=== PATIENT | female | born 1960 | race Caucasian/White ===

== ENCOUNTER 2021-04-08 10:24 | Observation (INO) | payer BC ==
[2021-04-03 12:21] LABS: Absolute Lymphocytes (CBC) 3.4 K/uL (0.7-4.9); Hematocrit 44.8 % (36.0-45.0); Lymphocytes % 36.9 % (15.3-44.8); MPV 7.9 fL (7.6-11.3); RBC Red Blood Cell Count 4.81 M/uL (3.86-4.86)
[2021-04-03 12:34] LABS: Urine Appearance CLEAR (Clear); Urine Bilirubin NEGATIVE (Negative); Urine Blood NEGATIVE (Negative); Urine Color YELLOW (Yellow); Urine Glucose NEGATIVE (Negative); Urine Protein NEGATIVE (Negative); Urine Urobilinogen 0.2 mg/dL (0.2-1.0)
[2021-04-03 12:56] LABS: Urine Microscopic Reflex NO UMIC
[2021-04-08] MEDS ORDERED: SCOPOLAMINE HYDROBROMIDE PATCH TD ONE (10:55)
[2021-04-08] MEDS ORDERED: CEFAZOLIN/SWI 2gm 2 GM/20 ML SYR ONE (10:55)
[2021-04-08] MEDS ORDERED: NA CHLORIDE 0.9% 1,000 ML ONE ×3 (10:55→18:46)
[2021-04-08] MEDS ORDERED: BUPIVACAINE 0.25% PF 10 ML VIAL ONE (11:54)
[2021-04-08] MEDS ORDERED: Ringers Lactate 1,000 ML IV ONE (11:54)
[2021-04-08] MEDS ORDERED: propofoL 200 MG/20 ML VIAL IV ONE (15:10)
[2021-04-08] MEDS ORDERED: GLYCOPYRROLATE 0.2 MG/ML SYR ONE (15:10)
[2021-04-08] MEDS ORDERED: LANO/MINERAL OIL/PETRO 3.5 GM ONE (15:10)
[2021-04-08] MEDS ORDERED: ONDANSETRON 4 MG/2 ML VIAL ONE (15:10)
[2021-04-08] MEDS ORDERED: SODIUM CHL 0.9% ONE (15:10)
[2021-04-08] MEDS ORDERED: FENTANYL CITR 100 MCG/2 ML ONE ×2 (15:10→15:11)
[2021-04-08] MEDS ORDERED: dexAMETHasone 10 MG/ML VIAL ONE (15:10)
[2021-04-08] MEDS ORDERED: NEOSTIGMINE 1 MG/ML -5 ML ONE (15:10)
[2021-04-08] MEDS ORDERED: FENTANYL CITR 250 MCG/5 ML ONE (15:10)
[2021-04-08] MEDS ORDERED: VECURONIUM 10 MG/VIAL IV ONE ×2 (15:10→15:11)
[2021-04-08] MEDS ORDERED: LIDOCAINE 1% MPF 5 ML VIAL ONE (15:10)
[2021-04-08] MEDS ORDERED: MIDAZOLAM HCL 2 MG/2 ML INJ ONE (15:10)
[2021-04-08] MEDS ORDERED: NA CHLORIDE 0.9% 50 ML ONE (15:11)
[2021-04-08] MEDS ORDERED: NALOXONE 0.4 MG/ML VIAL IV PRN (18:01)
[2021-04-08] MEDS ORDERED: MORPHINE/NS PCA 50 MG/50 ML PCA.SYRING IV PRN (18:01)
[2021-04-08] MEDS ORDERED: ONDANSETRON 4 MG/2 ML VIAL IV PRN (18:01)
[2021-04-08] MEDS ORDERED: PROMETHAZINE INJ 25 MG/ML AMP IV PRN (18:05)
[2021-04-08] MEDS: HYDROMORPHONE HCL 1 MG/ML INJ ONE ×2 (18:20→18:27)
--- OUTSIDE RECORDS SUMMARY | 2021-04-08 18:22 | XMS REPORT | Continuity of Care Document ---
:1960 Author Organization [facility] t Address [address] [place] [address] Dr. Oliver [address] [place] [address] Care Team Providers Name Role Phone OSEAS Attending Clinician Unavailable Lazaro Mccray Attending Clinician [phone] OSEAS Admitting Clinician Unavailable Payers Payer Name Policy Type Policy Number Effective Date Expiration Date S debbie [place] [id number] 2020 00:00:00 [employer] [place] [id number] 2019 00:00:00 Problems This patient has no known problems. Allergies, Adverse Reactions, Alerts This patient has no known allergies or adverse reactions. Medications This patient has no known medications. Procedures This patient has no known procedures. Encounters Start End Encounter Admission Attending Care Care Encounter Source Date/Time Date/Time Type Type Clinicians Facility Department ID 2020-12-16 2020-12-16 Outpatient ERRUPERTOON_R [facility] [id number] - [place] 10:39:00 10:39:00 [facility] 2020-12-16 2020-12-16 Outpatient Mahendra [facility] [id number] 00:00:00 00:00:00 Robe [id number] Lazaro [id number] 2020-09-30 2020-09-30 Outpatient ERICKSON_R [facility] [id number] - [place] 11:11:00 11:11:00 [id number] [facility] 2020-09-30 2020-09-30 Outpatient Mahendra [facility] [id number] 00:00:00 00:00:00 Robe [id number] Lazaro [id number] 2020-07-01 2020-07-01 Outpatient ERICKSON_R [facility] [id number] [place] 02:06:00 02:06:00 [id number] [facility] 2020-07-01 2020-07-01 Outpatient Mahendra [facility] [id number] 00:00:00 00:00:00 Robe [id number] Lazaro [id number] 2020-06-24 2020-06-24 Outpatient ERICKSON_R [facility] [id number] [place] 05:26:00 05:26:00 419 [facility] 2020-04-11 2020-04-11 Outpatient ERICKSON_R [facility] [id number] [place] 12:09:00 12:09:00 204 [facility] 2020-04-08 2020-04-08 Outpatient ERICKSON_R [facility] [id number] [place] 11:11:00 11:11:00 201 [facility] 2020-04-08 2020-04-08 Outpatient Mahendra [facility] [id number] 00:00:00 00:00:00 Robe [id number] Lazaro [id number] 2020-03-18 2020-03-18 Outpatient ERICKSON_R [facility] [id number] [place] 02:22:00 02:22:00 111 [facility] 2020-03-14 2020-03-14 Outpatient ERICKSON_R [facility] [id number] [place] 04:06:00 04:06:00 107 [facility] 2020-03-14 2020-03-14 Outpatient Mahendra [facility] [id number] 00:00:00 00:00:00 Robe [id number] Lazaro [id number] Results This patient has no known results.
[2021-04-08] MEDS ORDERED: HYDROMORPHONE HCL 1 MG/ML INJ ONE (18:49)
[2021-04-08 21:11] VITALS: BMI 28.5
[2021-04-08] MEDS: IBUPROFEN 600 MG TAB PO PRN (23:48)
[2021-04-09] MEDS: PIPER TAZO 3.375 GM in NA CHLORIDE 0.9% 100 ML IV SCH ×3 (01:02→17:41)
[2021-04-09] MEDS: IBUPROFEN 600 MG TAB PO PRN ×4 (05:43→22:31)
[2021-04-09] MEDS ORDERED: NA CHLORIDE 0.9% 1,000 ML ONE (07:43)
[2021-04-09] MEDS ORDERED: INFLUENZA VACCINE (for 6+ mo) 0.5 ML DOSE IMVAC ONE (08:00)
[2021-04-09] MEDS: METFORMIN HCL 500 MG TAB PO SCH ×2 (08:00→17:00)
[2021-04-09] MEDS: NIFEDIPINE XL 30 MG TABLET PO SCH (09:00)
--- NOTE | 2021-04-09 12:59 | P.PN ---
Subjective Date of Service: 04/09/21 Subjective: Improving (Patient has minimal pain, ambulatory, passing gas, hungry, no other issues) Physical Examination - Vital Signs Temperature: 99.0 F Blood Pressure: 128/58 Pulse: 76 Respirations: 16 Pulse Ox (%): 95 - Physical Exam General: Alert, In no apparent distress, Cooperative Gastrointestinal: Other (soft, mild appropriate tenderness to palpation, GELY serosanguanous) Assessment And Plan - Plan 61 year old woman seen for intraoperative consult for adhesions fro LEFT adenexa to rectosigmoid colon, proctoscopy, abdominal exploration, drain placement, adhesiolysis, exam under anesthesia - Clear liquid diet x 48 hours then advance to low residue - serial exams - continue plan per Dr. Santos
[2021-04-09] MEDS ORDERED: CETIRIZINE HCL 5 MG TABLET PO PRN (18:49)
--- NOTE | 2021-04-09 18:54 | P.PN ---
Subjective Date of Service: 04/09/21 Subjective: Tolerating diet, Ambulating, C/O voiced (cough with productive, clear, green tinged sputum), Doing well Pt states she has been coughing more frequently and producing clear, green tinged sputum. She has allergies and usually takes Zyrtec daily and smokes. Review of Systems General: As per HPI Respiratory: Cough, Sputum, Wheezing Cardiovascular: Unremarkable Gastrointestinal: No Distention Genitourinary: Unremarkable Musculoskeletal: Unremarkable Physical Examination - Vital Signs Temperature: 99.1 F Blood Pressure: 120/65 Pulse: 78 Respirations: 16 Pulse Ox (%): 93 - Physical Exam General: Alert, In no apparent distress Respiratory: Diminished, Inspiratory wheezes Cardiovascular: Regular rate/rhythm, Normal S1 S2 Gastrointestinal: Normal bowel sounds, Other (abdominal binder in place, GELY drain on right draining clear serosanguinous fluid) Musculoskeletal: No tenderness Integumentary: No rashes Neurological: Normal speech, Normal tone, Normal affect Urinary: Reid catheter (large amounts clear yellow urine) Assessment And Plan - Current Problems (Diagnosis) (1) Cough Onset Date: ~04/08/21 Current Visit: Yes Status: Acute Plan: Check CXR, begin incentive spirometry , start cetirizine daily. CBC in am. (2) Hydrosalpinx Onset Date: ~04/08/21 Current Visit: Yes Status: Acute Comment: 24 hours s/p diagnostic laparoscopy which was converted to laparotomy. PT doing very well, ambulating, intake clear liquids, excellent urine output, minimal pain only taking Motrin, not using UTILITY SPECIALIST. GELY draining mod amts clear serosang drainage. Since complaining of a productive cough will get a portable CXR and begin spirometry, pt is a smoker, has a history of cough related to allergies. She is afebrile. Zyrtec to start daily. She is not passing gas at this point, but has active bowel sounds. She will continue clear liquids for 24 more hours. Tomorrow can stop reid and UTILITY SPECIALIST. Plan to discharge in: Greater than 2 days - Code Status/Comfort Care Code Status Assessed: Yes Code Status: Full Code
--- NOTE | 2021-04-09 19:43 | RAD REPORT ---
EXAM DESCRIPTION: RAD - Chest Pa And Lat (2 Views) - 04/09/2021 7:13 pm CLINICAL HISTORY: Post Surgery, shortness of breath COMPARISON: None TECHNIQUE: Frontal and lateral views of the chest were obtained. FINDINGS: The lungs are clear. Heart size is normal and central vasculature is within normal limit s. No pleural effusion or pneumothorax seen. No acute bony finding noted. No aortic abnormality. IMPRESSION: No acute cardiopulmonary process.
[2021-04-10] MEDS: PIPER TAZO 3.375 GM in NA CHLORIDE 0.9% 100 ML IV SCH ×4 (03:31→17:00)
[2021-04-10] MEDS: IBUPROFEN 600 MG TAB PO PRN ×3 (05:48→17:46)
[2021-04-10 06:37] LABS: Lymphocytes % 36.8 % (15.3-44.8); MPV 7.7 fL (7.6-11.3); RBC Red Blood Cell Count 4.26 M/uL (3.86-4.86)
[2021-04-10 06:38] LABS: Absolute Lymphocytes (CBC) 3.8 K/uL (0.7-4.9)
[2021-04-10] MEDS ORDERED: METFORMIN HCL 500 MG TAB PO SCH (08:00)
[2021-04-10] MEDS: METFORMIN HCL 500 MG TAB PO SCH ×2 (08:00→17:00)
[2021-04-10] MEDS: BUPROPRION HCL S R PO SCH (09:00)
[2021-04-10] MEDS: NIFEDIPINE XL 30 MG TABLET PO SCH (09:00)
[2021-04-10] MEDS ORDERED: BUPROPION HCL 100 MG PO SCH (09:00)
[2021-04-10] MEDS ORDERED: NIFEDIPINE 30 MG PO SCH (09:00)
[2021-04-10] MEDS ORDERED: HYDROCODONE/APAP 5/325 MG TAB PO PRN (17:15)
[2021-04-10 20:14] VITALS: O2SAT 97
[2021-04-10] MEDS: AMOX/K CLAV 500 MG TAB PO SCH (20:57)
[2021-04-11] MEDS: IBUPROFEN 600 MG TAB PO PRN ×2 (06:07→14:45)
[2021-04-11] MEDS: METFORMIN HCL 500 MG TAB PO SCH (08:00)
[2021-04-11] MEDS: AMOX/K CLAV 500 MG TAB PO SCH ×2 (08:54→22:52)
[2021-04-11] MEDS: NIFEDIPINE XL 30 MG TABLET PO SCH (09:00)
[2021-04-11] MEDS: BUPROPRION HCL S R PO SCH (09:00)
[2021-04-11 09:37] LABS: Absolute Lymphocytes (CBC) 3.1 K/uL (0.7-4.9); Hematocrit 40.6 % (36.0-45.0); Lymphocytes % 25.7 % (15.3-44.8); MPV 7.8 fL (7.6-11.3); RBC Red Blood Cell Count 4.33 M/uL (3.86-4.86)
[2021-04-12 05:55] LABS: Absolute Lymphocytes (CBC) 3.4 K/uL (0.7-4.9); Hematocrit 40.4 % (36.0-45.0); Lymphocytes % 33.4 % (15.3-44.8); MPV 7.6 fL (7.6-11.3)
[2021-04-12 08:41] VITALS: TEMP 97.6
[2021-04-12] MEDS: AMOX/K CLAV 500 MG TAB PO SCH (08:41)
[2021-04-12] MEDS: IBUPROFEN 600 MG TAB PO PRN (13:30)
[2021-04-12 15:26] VITALS: BP 118/76
--- NOTE | 2021-04-13 08:04 | DS ---
Date of Discharge: 04/12/2021 Admitting Diagnosis: High-grade cervical dysplasia. Hospital Course: The patient was brought in for a total laparoscopic hysterectomy, bilateral salping o-oophorectomy, then had complications from adhesions of the sigmoid colon to the left tube and ovary for which she had a laparotomy. Please refer to her procedure note where she had a diagnostic laparoscopy converted to laparotomy, ly sis of bowel adhesions, and left salpingectomy. Unable to perform the hysterectomy as planned. She was then recovered from this procedure and brought to the floor for observation. I kept her on clear liquids for postop days 1 and 2. She tolerated all those well and she was advanced to full liquids. Then, on postop day #3, she started to pass flatus. On postop day #4 today, she has good bowel mov ements. Her white cell count has remained and 10,000 with 1 bump to 12,000 on postop day #3. Afebri le, vital signs are all stable. Abdomen is soft, minimally distended, and appropriately tender. Inc isions all were clean, dry, and intact. She was kept on Zosyn 3.375 q.6 hours for 40-48 hours and th en changed over to oral Augmentin with which she is doing very well. She was tolerating a regular di et. No nausea, vomiting. Discharge Diagnoses: 1.High-grade cervical dysplasia. The patient has not had a hysterectomy. This was not feasible due to the adhesions of the colon to the posterior wall of the uterus and left ovary and tube and partia l obliteration of the cul-de-sac on the left side, so plan is to re-evaluate her and probably do a co ld knife cone or LEEP after she has recovered from the surgery. We will discuss this plan at 4-6 wee tx postop visit. 2.Bowel adhesions, sigmoid adhesions. Potential leak has not been detected during the surgery and e lea postoperatively, the patient has been doing well and her Rodney-Swann drain does not show any ev idence of any stool. With a normal white cell count, the patient's plan is to continue the Augmentin b.i.d. for total of 10 days. So, this prescription of a dose was given to the patient and she is go ing to be discharged home. Clear instructions were given for close observation regarding fever over 101, nausea, vomiting, cessation of passing flatus or bowel moments, abdominal distention, and signif icant pain. The patient has been instructed to call and contact me immediately for evaluation of a b owel leak. 3.Diabetes mellitus. It has been well controlled and she has been on her home medications and hyper tension also well controlled, back on her home medications. 4.Smoker. She has quit smoking and has been doing very well without need for any nicotine. Instruc tions given. Tylenol No.3 given, discharge medications. Restart home medications and add Augmentin b.i.d. and Tylenol No.3 q.6 hours p.r.n. Discharge Followup: Dr. Montelongo and myself in our offices on Wednesday. She has an appointment jarrod smith made with my office and she understands that she should call and make this appointment and Dr. Contreras cev as well on the same day. Plan to remove the GELY drain at that time. She has been voiding well af ter Barragan removed. KAYCEE/DION Voice ID: [id number] Report ID: [id number]
--- NOTE | 2021-05-28 16:47 | OP ---
Date of Procedure: 04/08/2021 Surgeon: Naheed Santos MD Senior Staff Consultant: Dr. Robert Montelongo. Preoperative Diagnosis: High-grade cervical dysplasia in a postmenopausal patient who did not have v hilario regular followup in the past. Postoperative Diagnoses: High-grade cervical dysplasia in a postmenopausal patient who did not have very regular followup in the past and past evidence of diverticulitis with extensive sigmoid and stacey l adhesions, left hydrosalpinx, and adhesions of the left ovary with adhesions of the bowel. Procedures Performed: 1.Diagnostic laparoscopy. 2.Converted exploratory laparotomy, extensive lysis of sigmoid bowel adhesions, then left ovariolysi s. 3.Cystoscopy, left salpingectomy, incision removal of bilateral ureteral stents and rigid proctoscop y, the last procedure by Dr. Montelongo. Intraoperative Consult: Dr. Montelongo. Anesthesia: General endotracheal. Estimated Blood Loss: 100. Specimens: Left tube. Drains: Barragan catheter. Complications: No complications. Condition: Stable. Indications: The patient is a 61-year-old female, presented with abnormal Pap smear on investigation . After colposcopy and biopsy, she was found to have moderate cervical dysplasia. Discussed about t he options of LEEP procedure with ECC, possibly a cold knife cone since her endocervical curettage wa s positive for high-grade dysplasia versus a hysterectomy since she is menopausal. Both removal of t ubes and ovaries was discussed as well. The patient wanted to proceed with a hysterectomy, so she di d not have to worry about. A further operation if the colon was done and dysplasia was deeper or the re positive margins and worry about subsequent Pap smear screening at a very close interval. Underst ood all the benefits, alternatives, and risks of the hysterectomy, was consented and taken back to [facility] OR. Procedure In Detail: After placing her in a supine fashion, general anesthesia was given. She was p laced in a dorsal lithotomy position. Abdomen, vulva, vagina, and perineum prepped and draped in a s terile fashion. Barragan was placed to drain the bladder. A large VCare was introduced into the uterus and fixed in place. A 1 cm infraumbilical incision made with a scalpel using the open laparoscopy technique. Fascia was incised, tagged with 0 Vicryl sutures and peritoneum entered sharply. S-retractors were placed. Has son introduced. After adequate insufflation, site of entry was checked and was unremarkable. Upper abdominal surfaces were unremarkable as well. The patient was placed in Trendelenburg position. The uterus was small; however, there were significant adhesions of left adnexa to the sigmoid colon and all the way to the pelvic brim on the left side and these adhesions were completely obliterating the cul-de-sac, difficult to visualize any part of the uterus in the posterior wall below the fundus. Th en, the left lateral wall was also completely plastered with bowel to the sidewall starting at the pe lvic brim all the way down into the cul-de-sac. After the adhesions were started to be taken down sharply with scissors, bowel adhesions were taken d own from the sidewall. The left adnexa at its origin were exposed. The dissection between the urete r and sigmoid was started and after adequately taken down and coming to the area where the tube and o vary were stuck to the colon, this appeared to be a diverticulum and then peridiverticular and scar t issue, which probably is a sign of possible infection, which the patient has not been diagnosed with. At this point, there was extreme difficulty in visualizing the posterior aspect of the bowel, uterus. As I was taking down the adhesions, there appeared to be a slight leakage of the retained material from the tube, which may be suspicious for a bowel injury, so at this point decision was made to conv ert to a laparotomy. A lower midline incision was made with the help of scalpel using a 10 blade. Then, dissection was ca rried to the fascia with the help of the blade with cautery. The fascia was incised in the midline. The peritoneum was entered all the way down as well. Then, after exposing the bowel and packing the upper bowel into the upper abdomen using 2 sponges, the sigmoid colon was dissected from the uterus. Dr. Montelongo was consulted to help me with this part of the procedure. Very centrally, the tube and ovary were from the bowel in the topmost part. The rest of the bowel has been left alone where it did have to be taken down from the lower part of the uterus and all the way down to the uppe r top of vaginal wall on the left side. I opened the left sidewall lateral to the IP ligament. The peritoneum was opened up. Then, the dissection was carried in the medial leaf of the broad ligament, identifying the ureter at the level of the pelvic brim. Then, a peritoneal incision was made betwee n the ureter and the IP. Then, LigaSure was used to take this down. Once the specimen was detached from here, dissection was performed and continued down toward the lower part of the ureter, so I coul d take this last for the adhesions down safely as these seem to be pulled. Once the ovarian adhesions were taken down from the medial and posterior aspect and the bowel was sep arated, here the left tube was dissected with the help of the LigaSure and removed. The ovarian adhe sions were then taken down so that the ovary could be released. Every attempt was made to see if the hysterectomy could be proceeded as planned; however, there seemed to be some superficial irregularit y of the sigmoid colon due to the separation of the adhesions from the tube. The tubal material appe ared to be old endometriosis and seems to have been leaking. This was very difficult to be different iated from the stool. So, the proctosigmoidoscopy was performed by Dr. Montelongo as I occluded the bow el. There was no evidence of any air leak or water leak as this was tested both under pelvis and canelo er and then dried. Once it was completely evaluated and negative for a bowel leak or bowel injury, a large Rodney-Swann drain was placed in this area coming out through the right lower quadrant port s ana. This was left in place. The plan was to complete the procedure here, so we could come back at a later point in time and continue our surgery if we had to after discussing with the patient about h er findings and bowel prepping. While the dissection was being performed on the left side, bilateral ureteric stents were placed, 5 m m using a 17-Indonesian sheath on the cystoscope with normal saline. The stents were placed, then tied t o the Barragan and then they were removed at the end of first before waking the patient up and the Barragan was left in place. The abdominal incision and peritoneum closed with the help of 3-0 Vicryl, fascia closed with the help of 0 PDS, subcutaneous tissues closed with interrupted 3-0 chromic, and skin cl osed with the help of alix. All the instrument, needle, and sponge counts were correct at the end of the case. After packing the patient, she was recovered from anesthesia and taken to PACU in stab le condition. She had follow up with us after she is discharged, but she was admitted for observatio n until she was improved at least for 2 days . All the findings were discussed with her sister, who was waiting in the room and she understood this. She was a bit disappointed that the hysterectomy co uld not be completed as planned; however, she was thankful that her sister did not end up with having a colostomy bag. KAYCEE/DION Voice ID: [id number] Report ID: [id number]
== END 2021-04-12 13:55 | disposition home or self-care (01) ==
LOC: OR 10:24 → INTOOBSV 18:19 → 2ND-WC 18:19
PROVIDERS: ADMIT Obstetrics & Gynecology; ATTEND Obstetrics & Gynecology
PROC: 0DJD8ZZ Inspection of Lower Intestinal Tract, Via Natural or Artificial Opening Endoscopic (ICD-10-PCS; 2021-04-08)
PROC: 0UT60ZZ Resection of Left Fallopian Tube, Open Approach (ICD-10-PCS; principal; 2021-04-08 11:45)
DX: N87.1 Moderate cervical dysplasia (principal); N70.11 Chronic salpingitis; K66.0 Peritoneal adhesions (postprocedural) (postinfection); Z53.31 Laparoscopic surgical procedure converted to open procedure; E11.9 Type 2 diabetes mellitus without complications; I10 Essential (primary) hypertension; R05.9 Cough, unspecified; J30.89 Other allergic rhinitis; F33.0 Major depressive disorder, recurrent, mild; E66.9 Obesity, unspecified; Z68.28 Body mass index [BMI] 28.0-28.9, adult; F17.210 Nicotine dependence, cigarettes, uncomplicated; Z78.0 Asymptomatic menopausal state; Z79.84 Long term (current) use of oral hypoglycemic drugs; Z87.19 Personal history of other diseases of the digestive system; Z20.822 Contact with and (suspected) exposure to COVID-19
CPT/HCPCS: 58700; 45300; 85025 ×4; 36415 ×3; 86900; 86850; 86901; 82947 ×10; 88302; 81003; 71046; 94010 ×4; G0379; U0002; J2704; J2543 ×2; J2250; J3010 ×3; J1100; J1170 ×2; J2710; J0690; J7120; J7030 ×4; J2405; G0378 ×5; 88305

== ENCOUNTER 2021-05-02 07:51 | Day surgery (SDC) | payer BC ==
[2021-04-30 13:34] LABS: BUN Blood Urea Nitrogen 16 mg/dL (7-18); Bicarbonate 28 mmol/L (21-32); Glucose Level 115 mg/dL (74-106); Potassium 4.6 mmol/L (3.5-5.1); Sodium Level 139 mmol/L (136-145)
[2021-05-02] MEDS ORDERED: NA CHLORIDE 0.9% 1,000 ML ONE (08:14)
[2021-05-02] MEDS ORDERED: propofoL 200 MG/20 ML VIAL IV ONE ×2 (09:19→09:41)
[2021-05-02] MEDS ORDERED: LIDOCAINE 1% MPF 5 ML VIAL ONE (09:20)
--- NOTE | 2021-05-02 09:59 | ENDO RPT ---
[address], [address] COLONOSCOPY PROCEDURE REPORT EXAM DATE: 05/02/2021 PATIENT NAME: Valerio Pike MR #: [id number] BIRTHDATE: 1960 ATTENDING: Robert Montelongo DR STATUS: outpatient VOICE SYSTEMS ENGINEER: Mae Arguelles and Destini Santana RN INDICATIONS: The patient is a 61 yr old Female here for a colonoscopy due to History of diverticulosis, had surgery which confirmed bowl adjerant to adenexa PROCEDURE PERFORMED: Colonoscopy and Screening Colonoscopy MEDICATIONS: Per Anesthesia. ESTIMATED BLOOD LOSS: None CONSENT: The patient understands the risks and benefits of the procedure and understands that these risks include, but are not limited to: sedation, allergic reaction, infection, perforation and/or bleeding. Alternative means of evaluation and treatment include, among others: physical exam, x-rays, and/or surgical intervention. The patient elects to proceed with this endoscopic procedure. DESCRIPTION OF PROCEDURE: During intra-op preparation period all mechanical medical equipment was checked for proper function. Hand hygiene and appropriate measures for infection prevention was taken. Procedure, possible complications, alternatives including, but not limited to possibility of bleeding, perforation, tear, infection, sepsis, need for surgery, need for blood transfusion, were explained to the patient. After the risks, benefits and alternatives of the procedure were thoroughly explained, Informed consent was verified, confirmed and timeout was successfully executed by the treatment team. The patient was placed in the left lateral position. A digital rectal exam was performed and revealed external hemorrhoids and A digital rectal exam was performed and revealed internal hemorrhoids. After appropriate level of anesthesia, the scope was passed. The EC-[id number] ([id number]) and [id number] ([id number]) endoscope was introduced through the anus and advanced to the cecum, which was identified by both the appendix and ileocecal valve. The quality of the prep was fair. The instrument was then slowly withdrawn as the colon was fully examined. Scope withdrawal time was 10 minutes. COLON FINDINGS: There was moderate diverticulosis noted in the sigmoid colon with associated luminal narrowing @ 18cm from anal verge. No bleeding was noted from the diverticulosis. Retroflexed views revealed no abnormalities. The scope was then completely withdrawn from the patient and the procedure terminated. ADVERSE EVENTS: There were no complications. IMPRESSIONS: There was moderate diverticulosis noted in the sigmoid colon RECOMMENDATIONS: 1. avoid NSAIDS for 2 weeks 2. Monitor for any evidence of rectal bleeding. 3. yearly hemoquant 4. hemorrhoidal hygiene 5. yearly hemoccult starting in 4 years 6. increase dietary water 7. low fiber / diverticular diet RECALL: Return in 5 year(s) for Colonoscopy. Fecal DNA test in [address] eSigned: Robert Montelongo DR 05/02/2021 9:59 AM cc: CPT CODES: ICD9 CODES: PATIENT NAME: Valerio PikeMichelle MR#: [id number]
[2021-05-02 11:43] VITALS: BP 127/73; TEMP 97.7; O2SAT 98
== END 2021-05-02 10:30 | disposition home or self-care (01) ==
LOC: OR 07:51
PROVIDERS: ATTEND Surgery
PROC: 0DJD8ZZ Inspection of Lower Intestinal Tract, Via Natural or Artificial Opening Endoscopic (ICD-10-PCS; principal; 2021-05-02 09:15)
DX: Z12.11 Encounter for screening for malignant neoplasm of colon (principal); K57.30 Diverticulosis of large intestine without perforation or abscess without bleeding; K64.4 Residual hemorrhoidal skin tags; Z20.822 Contact with and (suspected) exposure to COVID-19
CPT/HCPCS: 80048; 36415; 82947; 45378; U0003; J2704 ×2; J7030

== ENCOUNTER 2021-05-20 11:14 | Day surgery (SDC) | payer BC ==
[2021-05-20] MEDS ORDERED: NA CHLORIDE 0.9% 1,000 ML ONE (11:34)
[2021-05-20] MEDS ORDERED: dexAMETHasone 10 MG/ML VIAL ONE (11:45)
[2021-05-20] MEDS ORDERED: FENTANYL CITR 100 MCG/2 ML ONE (11:45)
[2021-05-20] MEDS ORDERED: LIDOCAINE 1% MPF 5 ML VIAL ONE (11:45)
[2021-05-20] MEDS ORDERED: propofoL 200 MG/20 ML VIAL IV ONE (11:45)
[2021-05-20] MEDS ORDERED: MIDAZOLAM HCL 2 MG/2 ML INJ ONE (11:45)
[2021-05-20] MEDS ORDERED: ONDANSETRON 4 MG/2 ML VIAL ONE (11:46)
[2021-05-20] MEDS ORDERED: ACETAMINOPHEN 500 MG TAB ONE (11:56)
[2021-05-20] MEDS ORDERED: ACETIC ACID 0.25% IRRIG IRR SCH (12:00)
[2021-05-20] MEDS ORDERED: NS 0.9% VIAL 0 ML ONE (12:12)
[2021-05-20] MEDS ORDERED: VASOPRESSIN 20 UNIT/ML VIAL ONE (12:12)
[2021-05-20] MEDS ORDERED: LIDOCAINE 1% W/EPI 1:100,000 MDV 20 ML VIAL ONE (12:12)
[2021-05-20] MEDS ORDERED: CEFAZOLIN SODIUM 1 GM/VIAL ONE (14:06)
[2021-05-20] MEDS ORDERED: KETOROLAC 30 MG/ML INJ ONE (14:50)
[2021-05-20] MEDS ORDERED: PROMETHAZINE INJ 25 MG/ML AMP IV PRN (15:16)
[2021-05-20] MEDS ORDERED: HYDROCODONE/APAP 5/325 MG TAB PO PRN (15:16)
[2021-05-20] MEDS ORDERED: MEPERIDINE HCL 25 MG/ML SYR IM PRN (15:16)
[2021-05-20] MEDS: HYDROMORPHONE HCL 1 MG/ML INJ ONE ×2 (15:18→15:23)
--- NOTE | 2021-05-20 15:18 | P.BOP ---
Preoperative diagnosis: MARY 2 ECC high grade Postoperative diagnosis: same Primary procedure: CKC ECC Cervical colposcopy Estimated blood loss: min Specimen: cervical cone, ECC Findings: same Anesthesia: General Complications: None Transferred to: Recovery Room Condition: Good
[2021-05-20] MEDS ORDERED: HYDROMORPHONE HCL 1 MG/ML INJ ONE (15:22)
[2021-05-20] MEDS ORDERED: METFORMIN HCL 500 MG TAB PO SCH (17:00)
[2021-05-20 17:48] VITALS: BP 124/57; TEMP 97.3; O2SAT 94
--- NOTE | 2021-05-21 02:10 | OP ---
Date of Procedure: 05/20/2021 Surgeon: Naheed Santos MD Preoperative Diagnosis: High-grade Pap with cervical intraepithelial neoplasia 2 on colposcopic biop sy, endocervical curettage with high-grade dysplasia. 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 New partner 3 years ago. After discussing the options of cold knife cone with endocervical curettage and hysterectomy, she wan ruben to proceed with hysterectomy; however, on laparoscopy during hysterectomy, she had severe diverti culitis and adhesions to the uterus and the lower part of the cul-de-sac was obliterated with diverti cular disease that had precluded the performance of this procedure, so she was brought back to the OR after consenting for a cold knife cone and endocervical curettage, which is the most important thing to be taken care off in a timely fashion. After informed consent was verified, she was taken back to OR today and placed in a supine fashion on the operating table. After general anesthesia was given, she was placed in a dorsal lithotomy posit ion. 2 g of Ancef was given. SCDs were placed. Time-out was done. The colposcopy was performed wi th acetic acid and then Lugol iodine was placed. It was not very evident to see the dysplastic lesio n at this time, so after sustaining the ectocervical margin with the Lugol iodine, went on to inject both 3 and 9 o'clock positions with 1% lidocaine mixed with 1:100,000 epinephrine for hemostasis, 10 cc each at 3 and 9 o'clock. 0 Vicryl subxcp-le-lsrly stitch was placed on each side for retraction a s well as for hemostasis. Then, 11 blade was taken on a cold knife conization scalpel. The incision started at 3 o'clock and in an anti-clockwise fashion, the conization was completed. The depth of t he cone was at least 2.5 cm. The entire cervical canal was included in the specimen and the specimen was marked with a cut at 3 o'clock and a short stitch at the ectocervical margin and a long stitch a t the endocervical margin. There was a crush due to the placement of the Allis for of the specimen from the ectocervical margin most likely between 12 and 4 o'clock positions. This tissue w as included with the specimen. Endocervical curettage was performed with a curette and a brush. A circumferential modified pursestring suture was placed all around the cervix in a circumferential f ashion to close the open wound. Once this was done, hemostasis was further secured with the help of the astringent on rectal swabs. These were used to apply the solution to the raw area. Once this wa s done and excellent hemostasis was secured, the sutures were cut short, which were the stay sutures. All the instruments, needles, and sponges were counted and correct. She tolerated the procedure we ll. She was recovered from anesthesia and taken to PACU in stable condition. She will follow up wit [facility] in 2 weeks for Pap followup as well as pelvic exam. KAYCEE/DION Voice ID: [id number] Report ID: [id number]
[2021-05-21] MEDS ORDERED: NIFEDIPINE 30 MG PO SCH (09:00)
== END 2021-05-20 16:39 | disposition home or self-care (01) ==
LOC: OR 11:14
PROVIDERS: ATTEND Obstetrics & Gynecology
PROC: 0UBC8ZX Excision of Cervix, Via Natural or Artificial Opening Endoscopic, Diagnostic (ICD-10-PCS; principal; 2021-05-20 12:30)
DX: D06.0 Carcinoma in situ of endocervix (principal); A63.0 Anogenital (venereal) warts; Z22.4 Carrier of infections with a predominantly sexual mode of transmission; N73.6 Female pelvic peritoneal adhesions (postinfective); E11.9 Type 2 diabetes mellitus without complications; I10 Essential (primary) hypertension; Z20.822 Contact with and (suspected) exposure to COVID-19
CPT/HCPCS: 82947 ×2; 88305; 88307; 57520; U0002; J2704; J2250; J3010; J1100; J1170 ×2; J7030; J2405; J0690

== ENCOUNTER 2023-08-22 13:12 | Inpatient (IN) | payer BC, MEDICARE ==
[2023-08-22 14:35] LABS: Absolute Basophils 0.1 K/uL (0-0.5); Absolute Lymphocytes (CBC) 2.6 K/uL (0.7-4.9); Absolute Monocytes 0.3 K/uL (0.1-1.3); Basophils % 0.3 % (0-1.3); Hematocrit 41.2 % (36.0-45.0); Hemoglobin 13.8 g/dL (12.0-15.0); Lymphocytes % 6.7 % (15.3-44.8); MCH 31.1 pg (27.0-35.0); MCHC 33.5 g/dL (32.0-36.0); MCV 92.8 fL (80-100); MPV 8.7 fL (7.6-11.3); Monocytes % 0.8 % (3.3-12.3); Neutrophils % 92.2 % (41.7-73.7); Platelets 141 thou/uL (152-406); RBC Red Blood Cell Count 4.45 M/uL (3.86-4.86); Red Cell Distribution Width 13.6 % (12.1-15.2)
[2023-08-22] MEDS ORDERED: FENTANYL CITR 100 MCG/2 ML ONE (14:43)
[2023-08-22 14:44] LABS: PT Prothrombin Time 12.2 SECONDS (9.5-12.5); PTT, Activated Partial Thromb 31.5 SECONDS (24.3-36.9); Protime INR 1.11
[2023-08-22 14:56] LABS: ALT/SGPT 30 U/L (13-56); Albumin 3.8 g/dL (3.4-5.0); Albumin/Globulin Ratio 1.1 (1.1-1.8); Alkaline Phosphatase 122 U/L (45-117); Anion Gap 9.7 mEq/L (5.0-15.0); BUN Blood Urea Nitrogen 18 mg/dL (7-18); Bicarbonate 28 mEq/L (21-32); Bilirubin Total 0.3 mg/dL (0.2-1.0); Globulin 3.6 g/dL (2.3-3.5); Glomerular Filtration Rate 100 ml/min (=/>90); Glucose Level 150 mg/dL (74-106); Potassium 3.7 mEq/L (3.5-5.1); Protein, Total 7.4 g/dL (6.4-8.2); Sodium Level 136 mEq/L (136-145)
[2023-08-22 14:59] LABS: AST/SGOT < 10 U/L (15-37)
[2023-08-22 15:26] LABS: Band Neutrophils 4 % (0-1); Differential Total Cells Count 100; Lymphocytes 12 % (15-42); Platelet Estimate ADEQ; Segmented Neutrophils 84 % (40-80)
[2023-08-22 15:27] LABS: Anisocytosis 1+; Blood Morphology Comment NOTED (NOT SEEN)
[2023-08-22] MEDS ORDERED: NA CHLORIDE 0.9% 100 ML ONE (15:34)
[2023-08-22] MEDS ORDERED: CEFAZOLIN SODIUM 1 GM/VIAL ONE (15:34)
[2023-08-22] MEDS ORDERED: NA CHLORIDE 0.9% 1,000 ML ONE (15:35)
[2023-08-22 15:36] LABS: Specific Gravity 1.008 (1.005-1.030); Sqamous Epithelial <5 /HPF (None Seen); Urine Bacteria <20 /HPF (<20); Urine Bilirubin NEGATIVE (Negative); Urine Blood Negative (Negative); Urine Clarity Turbid (Clear); Urine Color Colorless (Yellow); Urine Culture Reflex Order NOT NEEDED; Urine Glucose NEGATIVE (Negative); Urine Ketones NEGATIVE (Negative); Urine Microscopic Reflex YN ORDER UMIC; Urine Nitrite NEGATIVE (Negative); Urine Protein NEGATIVE (Negative); Urine RBC <5 /HPF (None Seen); Urine Urobilinogen Normal (Normal); Urine WBC <5 /HPF (<5)
--- NOTE | 2023-08-22 15:44 | RAD REPORT ---
EXAM DESCRIPTION: US - Extrem Venous W Compress Anthony - 08/22/2023 3:39 pm CLINICAL HISTORY: PAIN Bilateral leg edema and swelling. COMPARISON: No comparisons TECHNIQUE: Real-time sonographic interrogation of the left and right lower extremity deep venous sys tems was performed. FINDINGS: Normal compressibility, flow augmentation, phasic flow and spontaneous flow is identified in both the left and right lower extremity deep venous systems. IMPRESSION: No sonographic evidence of left or right lower extremity deep venous thrombosis.
--- NOTE | 2023-08-22 15:46 | RAD REPORT ---
EXAM DESCRIPTION: US - Lower Extremity Arterial Bilat - 08/22/2023 3:39 pm CLINICAL HISTORY: PAIN COMPARISON: No comparisons TECHNIQUE: Bilateral lower extremity arterial Doppler examination was performed with rosa walters FINDINGS: Triphasic waveforms are seen throughout both lower extremity arterial systems to the level of the olga salis pedis arteries. No high-grade stenosis or occlusion. IMPRESSION: No evidence of significant peripheral vascular disease.
--- NOTE | 2023-08-22 16:18 | RAD REPORT ---
EXAM DESCRIPTION: RAD - Chest Single View - 08/22/2023 4:01 pm CLINICAL HISTORY: COUGH Chest pain. COMPARISON: Chest Single View dated 07/26/2023; Chest Pa And Lat (2 Views) dated 04/09/2021 FINDINGS: Portable technique limits examination quality. The lungs are grossly clear. The heart is normal in size. No displaced fractures.Right port catheter tip in SVC. IMPRESSION: No acute intrathoracic process suspected.
--- NOTE | 2023-08-22 17:53 | RAD REPORT ---
EXAM DESCRIPTION: CT - Chest Abdomen Pelvis W Cont - 08/22/2023 5:37 pm CLINICAL HISTORY: Chest and abdomen pain. elevated wbc COMPARISON: No comparisons TECHNIQUE: Approximately 100 mL nonionic IV contrast was administered to the patient. All CT scans are performed using dose optimization technique as appropriate and may include automated exposure control or mA/KV adjustment according to patient size. FINDINGS: The lungs are clear.No pleural or pericardial effusion.No intrathoracic adenopathy. The liver, spleen, pancreas, adrenal glands and left kidney are within normal limits. Punctate calcul us right kidney without hydronephrosis. No bowel obstruction, free air, free fluid or abscess. Normal appendix. Mild sigmoid diverticulosis c rishi with mild thickening of the sigmoid colon wall. Aortoiliac atherosclerosis. No pathologic lymphad enopathy in the abdomen or pelvis. No worrisome osseous finding. IMPRESSION: Early/mild acute diverticulitis of the sigmoid colon is possible.Otherwise, no acute pro cess seen.
--- NOTE | 2023-08-22 18:06 | EDPHYS ---
Physician Documentation [facility] Name: Valerio Pike Age: 63 yrs Sex: Female : 1960 Arrival Date: 08/22/2023 Time: 13:12 Bed 2 Private MD: ED Physician Sanjay Lopez HPI: 08/21 13:50 This 63 yrs old Female presents to ER via Ambulatory with complaints of Cancer pt, Leg cp Pain, Low Body temp. 13:50 The patient presents with pain, that is acute. The complaints affect the left leg and cp right leg. 13:50 Context: resulted from an unknown cause, the patient can fully bear weight, the patient cp is able to ambulate, with mild difficulty, Problem is a result from a previous injury: No. 13:50 Onset: The symptoms/episode began/occurred last night, and became worse today. cp Associated signs and symptoms: Pertinent negatives fever, swelling, warmth. Patient with PMHX significant for ovarian cancer and is currently receiving chemotherapy. Last treatment was this past Wednesday. Patient reports low body temp of 94.9 today and bilateral leg pain. Historical: - Allergies: 13:41 Naprosyn; hb - Home Meds: 13:41 apixaban 5 mg oral tablet [Active]; rosuvastatin 20 mg oral tablet [Active]; hb - PMHx: 13:41 Ovarian Cancer; Hypertension; DM2; hb - PSHx: 13:41 Cholecystectomy; Hysterectomy; hb - Immunization history:: Adult Immunizations up to date. - Infectious Disease History:: Denies. - Social history:: Smoking status: unknown. ROS: 13:55 Constitutional: Negative for body aches, fever, poor PO intake, cp 13:55 Eyes: Negative for injury, pain, redness, and discharge, cp 13:55 Cardiovascular: Negative for chest pain, 13:55 Respiratory: Positive for cough, Negative for shortness of breath, wheezing, 13:55 Abdomen/GI: Negative for abdominal pain, vomiting, diarrhea, constipation, 13:55 Back: Negative for pain at rest, pain with movement, 13:55 MS/extremity: Positive for pain, of the left leg and right leg, Negative for injury or acute deformity, decreased range of motion, paresthesias, 13:55 Neuro: Negative for altered mental status, dizziness, headache, syncope, weakness, 13:55 All other systems are negative, Exam: 14:00 Constitutional: The patient appears in no acute distress, alert, awake, cp non-diaphoretic, non-toxic, well developed, well nourished, 14:00 Head/Face: Normocephalic, atraumatic. cp 14:00 Eyes: Periorbital structures: appear normal, Conjunctiva: normal, no exudate, no injection, Sclera: no appreciated abnormality, Lids and lashes: appear normal, bilaterally, 14:00 ENT: External ear(s): are unremarkable, Nose: is normal, Mouth: Lips: moist, Oral mucosa: pink and intact, moist, Posterior pharynx: Airway: no evidence of obstruction, patent, erythema, is not appreciated, exudate, is not appreciated, 14:00 Neck: ROM/movement: is normal, is supple, without pain, no range of motions limitations, 14:00 Chest/axilla: Inspection: normal, 14:00 Cardiovascular: Rate: normal, Rhythm: regular, Edema: is not appreciated, JVD: is not appreciated, 14:00 Respiratory: the patient does not display signs of respiratory distress, Respirations: normal, no use of accessory muscles, no retractions, labored breathing, is not present, Breath sounds: are clear throughout, no decreased breath sounds, no stridor, no wheezing, 14:00 Abdomen/GI: Inspection: abdomen appears normal, Bowel sounds: active, all quadrants, Palpation: soft, in all quadrants, nontender, rebound tenderness, is not appreciated, 14:00 Back: pain, is absent, ROM is normal, 14:00 Skin: cellulitis, is not appreciated, no rash present. 14:00 Neuro: Orientation: to person, place \T\ time. Mentation: is normal, Motor: moves all fours, strength is normal, Sensation: is normal, 14:09 ECG was reviewed by the Attending Physician. cp Vital Signs: 13:39 BP 138 / 75; Pulse 94; Resp 23; Temp 97.9(O); Pulse Ox 99% on R/A; Weight 85.73 kg; hb Height 5 ft. 7 in. ; Pain 10/10; 17:00 BP 131 / 79; Pulse 83; Resp 16; Pulse Ox 98% ; ko1 19:46 BP 133 / 66; Pulse 90; Resp 17; Temp 97.9(TE); Pulse Ox 99% on R/A; tm6 13:39 Body Mass Index 29.60 (85.73 kg, 170.18 cm) hb 13:39 Pain Scale: Adult hb MDM: 13:30 Patient medically screened. 18:05 Data reviewed: vital signs, nurses notes, lab test result(s), EKG, radiologic studies, cp CT scan, plain films, and as a result, I will admit patient. 18:05 Consideration of Admission/Observation Patient was admitted/placed on observation. I cp considered the following discharge prescriptions or medication management in the emergency department Medications were administered in the Emergency Department. See MAR. Independent interpretation of the following test(s) in the Emergency Department EKG: See my EKG interpretation above. Care significantly affected by the following chronic conditions: Diabetes, Hypertension, Cancer. 08/21 13:44 Order name: Blood Culture Adult (2) 08/21 13:44 Order name: CBC with Diff; Complete Time: 16:20 08/21 14:59 Interpretation: Normal except: WBC 38.00; PLT 141; GAUTAM% 92.2; LYM% 6.7; MN% 0.8; NEUT A cp 35.0. 08/21 13:44 Order name: CMP; Complete Time: 16:16 08/21 16:17 Interpretation: Normal except: GLUC 150; AST < 10; ALK 122; GLOB 3.6. 08/21 13:44 Order name: Lactate w/ 2H reflex if indic.; Complete Time: 16:16 08/21 16:17 Interpretation: Abnormal: LAC 3.3. 08/21 13:44 Order name: Protime (+inr); Complete Time: 14:59 08/21 13:44 Order name: Ptt, Activated; Complete Time: 14:59 08/21 13:44 Order name: Urinalysis w/ reflexes; Complete Time: 16:16 08/21 16:17 Interpretation: Abnormal: [facility] Turbid. 08/21 15:00 Order name: SARS RAPID 08/21 15:00 Order name: Influenza Screen (a \T\ B) 08/21 15:05 Order name: Urinalysis W/Microscopic 08/21 15:05 Order name: Urine Culture 08/21 15:21 Order name: Manual Differential; Complete Time: 16:20 EDMS 16 16:18 Interpretation: Normal except: SEGS 84; BANDS [F] 4; LYM 12. cp 16 17:00 Order name: Ghost Lactate-NO COLLECT Timer; Complete Time: 17:59 EDMS 08/21 18:25 Order name: Urinalysis w/ reflexes EDMS 08/21 18:25 Order name: Basic Metabolic Panel EDMS 08/21 18:25 Order name: Basic Metabolic Panel EDMS 08/21 18:25 Order name: CBC with Automated Diff EDMS 08/21 18:25 Order name: CBC with Automated Diff EDMS 08/21 18:25 Order name: Comprehensive Metabolic Panel EDMS 08/21 18:25 Order name: Comprehensive Metabolic Panel EDMS 08/21 20:20 Order name: Lactate Sepsis 2 HR Follow-up EDMS 08/21 13:45 Order name: US LE Arterial Bilateral; Complete Time: 16:16 16 16:18 Interpretation: Report reviewed. 08/21 13:45 Order name: US Extremity Venous W Compression Anthony; Complete Time: 16:16 16 16:19 Interpretation: Report reviewed. 08/21 15:00 Order name: XRAY Chest (1 view); Complete Time: 16:20 16 16:20 Interpretation: Report review. 08/21 16:41 Order name: CT Chest, Abdomen, Pelvis - W/Contrast; Complete Time: 17:59 16 18:00 Interpretation: Report reviewed. 16 13:44 Order name: EKG; Complete Time: 13:44 08/21 13:44 Order name: Accucheck; Complete Time: 14:40 16 13:44 Order name: Cardiac monitoring; Complete Time: 13:48 /16 13:44 Order name: EKG - Nurse/Tech; Complete Time: 14:09 16 13:44 Order name: IV Saline Lock - Large Bore; Complete Time: 14:27 /16 13:44 Order name: Labs collected and sent; Complete Time: 14:27 /16 13:44 Order name: O2 Per Protocol; Complete Time: 13:48 /16 13:44 Order name: O2 Sat Monitoring; Complete Time: 13:48 08/21 13:44 Order name: Vital Signs; Complete Time: 13:48 cp EC:09 Rate is 86 beats/min. Rhythm is regular. NH interval is normal. QRS interval is normal. cp QT interval is normal. T waves are Inverted in lead aVR. Interpreted by me. Reviewed by me. Administered Medications: 14:49 Drug: fentaNYL (PF) IVP 25 mcg IVP once Route: IVP; Site: right antecubital; as6 19:00 Follow up: Response: No adverse reaction; Pain is decreased; RASS: Alert and Calm (0) pc2 15:54 Drug: NS 0.9% IV 1000 ml IV at 999 ml/hr Per protocol; 1000 mL bolus Route: IV; Rate: ko1 999 ml/hr; Site: right antecubital; 19:00 Follow up: Response: No adverse reaction; IV Status: Completed infusion; IV Intake: pc2 1000ml 15:54 Drug: Cefepime IVPB 1 grams IVPB at 200 ml/hr once over 30 mins; (mix in NS 100 mL) ko1 Route: IVPB; Rate: 200 ml/hr; Infused Over: 30 mins; Site: right antecubital; 19:00 Follow up: Response: No adverse reaction; IV Status: Completed infusion; IV Intake: pc2 100ml 18:39 Drug: metroNIDAZOLE IVPB 500 mg 100 ml IVPB once over 30 mins Volume: 100 ml; Route: ko1 IVPB; Infused Over: 30 mins; Site: right antecubital; 19:21 Follow up: Response: No adverse reaction; IV Status: Completed infusion; IV Intake: pc2 100ml Disposition Summary: 08/22/23 18:06 Hospitalization Ordered Notes: Hospitalization Status: Inpatient Admission cp Provider: Charles Holt cp Location: Telemetry/[facility] (Inpatient) cp Condition: Stable cp Problem: new cp Symptoms: have improved cp Bed/Room Type: Standard cp Room Assignment: 205(08/22/23 19:08) sp Diagnosis - Diverticulitis of intestine, part unspecified, without perforation or abscess cp without bleeding - Severe sepsis without septic shock cp Forms: - Medication Reconciliation Form cp - SBAR form cp - Leadership Thank You Letter cp Addendum: 08/24/2023 14:15 I was immediately available for consultation during this patient's visit. I did not e c2 personally see the patient or discuss the patient with the ELO. . Signatures: Dispatcher [employer] EDMS Sofi Guillen Corey, PA PA cp Baxter, Heather, SARAH RN hb Johan Brown RN RN as6 Lu Lott RN RN ko1 Sanjay Lopez MD MD ec2 Marysol calderon RN pc2 Corrections: (The following items were deleted from the chart) 08/21 13:46 13:46 Lower Extremity Arterial Bilat+US.RAD.BRZ ordered. EDMS EDMS 13:46 13:46 Extrem Venous W Compression Anthony+US.RAD.BRZ ordered. EDMS EDMS 14:28 13:44 Urinalysis+U.LAB.BRZ ordered. EDMS EDMS 15:21 14:38 CBC Smear Scan ordered. EDMS EDMS 19:08 18:06 cp sp
--- NOTE | 2023-08-22 18:06 | ER ---
Nurse's Notes [facility] Name: Valerio Pike Age: 63 yrs Sex: Female : 1960 Arrival Date: 08/22/2023 Time: 13:12 Bed 2 Private MD: Diagnosis: Diverticulitis of intestine, part unspecified, without perforation or abscess without bleeding;Severe sepsis without septic shock Presentation: 08/21 13:39 Chief complaint: Sent by Dr. Mccormack at the cancer center for severe bilateral lower leg hb pain and oral temp 94.9. Had last chemo on Wednesday. Coronavirus screen: At this time, the client does not indicate any symptoms associated with coronavirus-19. Ebola Screen: No symptoms or risks identified at this time. Initial Sepsis Screen: Does the patient meet any 2 criteria? RR > 20 per min. HR > 90 bpm. Yes Does the patient have a suspected source of infection? No. Patient's initial sepsis screen is negative. Risk Assessment: Do you want to hurt yourself or someone else? Patient reports no desire to harm self or others. Onset of symptoms was August 22, 2023. 13:39 Method Of Arrival: Ambulatory hb 13:39 Acuity: NAHID 2 hb Historical: - Allergies: 13:41 Naprosyn; hb - Home Meds: 13:41 apixaban 5 mg oral tablet [Active]; rosuvastatin 20 mg oral tablet [Active]; hb - PMHx: 13:41 Ovarian Cancer; Hypertension; DM2; hb - PSHx: 13:41 Cholecystectomy; Hysterectomy; hb - Immunization history:: Adult Immunizations up to date. - Infectious Disease History:: Denies. - Social history:: Smoking status: unknown. Screenin:00 [facility] ED Fall Risk Assessment (Adult) History of falling in the last 3 months, ko1 including since admission No falls in past 3 months (0 pts) Confusion or Disorientation No (0 pts) Intoxicated or Sedated No (0 pts) Impaired Gait No (0 pts) Mobility Assist Device Used No (0 pt) Altered Elimination No (0 pt) Score/Fall Risk Level 0 - 2 = Low Risk Oriented to surroundings, Maintained a safe environment, Educated pt \T\ family on fall prevention, incl call for assistance when getting out of bed, Assessed \T\ reinforced patient's understanding of fall precautions, Provided non-skid footwear, Hourly rounding (assess needs \T\ fall precautionary measures) done, Used ambulatory aids as needed (educated on \T\ assisted with), Used gait belt as appropriate. Abuse screen: Denies threats or abuse. Denies injuries from another. Nutritional screening: No deficits noted. Tuberculosis screening: No symptoms or risk factors identified. Assessment: 14:00 General: Appears in no apparent distress. Behavior is calm, cooperative, appropriate ko1 for age. Pain: Complains of pain in right leg and left leg. Neuro: No deficits noted. Cardiovascular: No deficits noted. Respiratory: No deficits noted. GI: No deficits noted. : No deficits noted. EENT: No deficits noted. Derm: No deficits noted. Musculoskeletal: Reports pain in right leg and left leg. 19:10 Reassessment: No changes from previously documented assessment. Patient and/or family pc2 updated on plan of care and expected duration. Pain level reassessed. Assisted patient to restroom in wheelchair. Family remains at bedside. Pt and family educated on process of moving to inpatient bed. Pending labs collected at this time and VS updated. Call light in reach. Respiratory: Airway is patent Respiratory effort is even, unlabored, Respiratory pattern is regular, symmetrical. Musculoskeletal: Circulation, motion, and sensation intact. Range of motion: limited in left knee and right knee. Vital Signs: 13:39 BP 138 / 75; Pulse 94; Resp 23; Temp 97.9(O); Pulse Ox 99% on R/A; Weight 85.73 kg; hb Height 5 ft. 7 in. ; Pain 10/10; 17:00 BP 131 / 79; Pulse 83; Resp 16; Pulse Ox 98% ; ko1 19:46 BP 133 / 66; Pulse 90; Resp 17; Temp 97.9(TE); Pulse Ox 99% on R/A; tm6 13:39 Body Mass Index 29.60 (85.73 kg, 170.18 cm) hb 13:39 Pain Scale: Adult hb ED Course: 13:14 Patient arrived in ED. mr 13:14 Manuel Jackson PA is PHCP. cp 13:14 Sanjay Lopez MD is Attending Physician. cp 13:32 Johan Brown, SARAH is Primary Nurse. as6 13:41 Triage completed. hb 14:00 First set of blood cultures drawn by me. zm 14:15 Inserted saline lock: 20 gauge in right antecubital area, using aseptic technique. zm Blood collected. 14:15 Initial lab(s) drawn, by me, sent to lab. zm 14:15 Second set of blood cultures drawn by me. zm 14:27 CBC with Diff Sent. zm 14:27 CMP Sent. zm 14:27 Lactate w/ 2H reflex if indic. Sent. zm 14:27 Protime (+inr) Sent. zm 14:27 Ptt, Activated Sent. zm 15:00 Assisted to bathroom. ko1 15:40 US LE Arterial Bilateral In Process Unspecified. EDMS 15:40 US Extremity Venous W Compression Anthony In Process Unspecified. EDMS 16:03 XRAY Chest (1 view) In Process Unspecified. EDMS 17:00 Assisted to bathroom. ko1 17:00 Patient has correct armband on for positive identification. Allergy band placed. Bed in ko1 low position. Call light in reach. Side rails up X2. Provided Education on: call light. Client placed on continuous cardiac and pulse oximetry monitoring. NIBP monitoring applied. bus monitor on. Door closed. Noise minimized. Lights dimmed. Warm blanket given. Pillow given. 17:38 CT Chest, Abdomen, Pelvis - W/Contrast In Process Unspecified. EDMS 18:04 Charles Holt MD is Hospitalizing Provider. cp 19:30 Patient labs collected. pc2 19:55 Patient has correct armband on for positive identification. Placed in gown. Bed in low pc2 position. Call light in reach. Side rails up X2. 19:56 No provider procedures requiring assistance completed. pc2 19:56 SARS RAPID Sent. pc2 19:56 Influenza Screen (a \T\ B) Sent. pc2 20:51 Patient admitted, IV remains in place. tm6 Administered Medications: 14:49 Drug: fentaNYL (PF) IVP 25 mcg IVP once Route: IVP; Site: right antecubital; as6 19:00 Follow up: Response: No adverse reaction; Pain is decreased; RASS: Alert and Calm (0) pc2 15:54 Drug: NS 0.9% IV 1000 ml IV at 999 ml/hr Per protocol; 1000 mL bolus Route: IV; Rate: ko1 999 ml/hr; Site: right antecubital; 19:00 Follow up: Response: No adverse reaction; IV Status: Completed infusion; IV Intake: pc2 1000ml 15:54 Drug: Cefepime IVPB 1 grams IVPB at 200 ml/hr once over 30 mins; (mix in NS 100 mL) ko1 Route: IVPB; Rate: 200 ml/hr; Infused Over: 30 mins; Site: right antecubital; 19:00 Follow up: Response: No adverse reaction; IV Status: Completed infusion; IV Intake: pc2 100ml 18:39 Drug: metroNIDAZOLE IVPB 500 mg 100 ml IVPB once over 30 mins Volume: 100 ml; Route: ko1 IVPB; Infused Over: 30 mins; Site: right antecubital; 19:21 Follow up: Response: No adverse reaction; IV Status: Completed infusion; IV Intake: pc2 100ml Medication: 17:00 VIS not applicable for this client. ko1 Intake: 19:00 IV: 100ml; Total: 100ml. pc2 19:00 IV: 1000ml; Total: 1100ml. pc2 19:21 IV: 100ml; Total: 1200ml. pc2 Outcome: 18:06 Decision to Hospitalize by Provider. cp 20:51 Admitted to Med/surg accompanied by rosy bernard 20:51 Condition: stable 20:51 Instructed on the need for admit, 20:51 Patient left the ED. 6 Signatures: Dispatcher [employer] EDNJ Haily Mckay, Cosmo Reg mr Manuel Jackson PA PA cp Baxter, Heather, RN RN hb Slawson, Ashby, RN RN as6 Yamileth Tamez Lu Lott RN RN koShelby Johnson RN RN tm6 Marysol calderon RN RN pc2 Corrections: (The following items were deleted from the chart) 14:26 14:00 Initial lab(s) drawn, by hi, sent to lab. First set of blood cultures drawn by gavin jama 14: 14:00 Initial lab(s) drawn, by hi, sent to lab. First set of blood cultures drawn by , 14: 14:27 Urinalysis+U.LAB.BRZ drawn and sent. [facility] 19:21 19:10 IV Status: Completed infusion; IV Intake: 100ml pc2 pc2
[2023-08-22] MEDS ORDERED: METRONIDAZOLE 500mg IVPB 500 MG/100 ML BAG IV ONE (18:17)
[2023-08-22] MEDS ORDERED: ONDANSETRON 4 MG/2 ML VIAL IV PRN (18:20)
[2023-08-22] MEDS ORDERED: ACETAMINOPHEN 325 MG TABLET PO PRN (18:20)
[2023-08-22] MEDS ORDERED: SODIUM CHLORIDE 0.9% 10ML INJ IV PRN (18:24)
--- NOTE | 2023-08-22 18:27 | P.HP ---
Certification for Inpatient Patient admitted to: Inpatient With expected LOS: >2 Midnights Practitioner: I am a practitioner with admitting privileges, knowledge of patient current condition, hospital course, and medical plan of care. Services: Services provided to patient in accordance with Admission requirements found in Title 42 Section 412.3 of the Code of Federal Regulations Patient History Date of Service: 08/22/23 Reason for admission: Acute Diverticulitis / Leg cramps History of Present Illness: 71-year-old female with past medical history of hypertension, diabetes, recently diagnosed with stage II ovarian cancer on chemotherapy who received chemo on Wednesday came to ER with pain in bilateral lower extremities associated with cramping. Denies any chest pain or shortness of breath. Patient also noted to have low temperature at home. Denies any fever or chills. No dysuria. No cough or upper respiratory tract symptoms. Denies any abdominal pain. She started having bilateral lower extremity pain associated with spasm and cramping which was intolerable and was brought to ER. Patient was assessed in the ER and was found to have lactic acidosis and leukocytosis had further workup for possible sepsis source and was diagnosed with acute sigmoid diverticulitis however patient does not have any abdominal pain. Patient is being admitted for further management Allergies naproxen Adverse Reaction (Verified 07/26/23 13:11) Itching Home medications list reviewed: Yes Home Medications: Metformin HCl [Glucophage] 500 mg PO BIDWM 04/03/21 NIFEdipine [Adalat cc] 30 mg PO DAILY 04/03/21 Apixaban [Eliquis] 5 mg PO DAILY 07/23/23 Cholecalciferol (Vitamin D3) [D3-5000] 1 tab PO DAILY 07/23/23 Ezetimibe 10 mg PO DAILY 07/23/23 Mecobalamin [B12 Active] 1 tab PO DAILY 07/23/23 Rosuvastatin Calcium 20 mg PO DAILY 07/23/23 Ubidecarenone [Co Q-10] 100 mg PO DAILY 07/23/23 - Past Medical/Surgical History Diabetic: Yes Past Medical History: Reviewed- Non-Contributory -: High Blood Pressure -: Type 2 Diabetes Past Surgical History: Reviewed- Non-Contributory -: Gallbladder Removed 2016 - Family History Family History: Reviewed- Non-Contributory - Social History Smoking Status: Never smoker Alcohol use: No CD- Drugs: No Caffeine use: Yes Review of Systems 10-point ROS is otherwise unremarkable Physical Examination - Vital Signs Temperature: 97.2 F Blood Pressure: 132/72 Pulse: 78 Respirations: 18 Pulse Ox (%): 94 - Physical Exam General: Alert, In no apparent distress, Oriented x3 HEENT: Atraumatic, Normocephalic Neck: Supple, 2+ carotid pulse no bruit Respiratory: Clear to auscultation bilaterally, Normal air movement Cardiovascular: No edema, Regular rate/rhythm, Normal S1 S2 Capillary refill: <2 Seconds Gastrointestinal: Soft and benign, W/out hepatosplenomegaly, No ascites, No tenderness, No guarding Musculoskeletal: No clubbing, No swelling Integumentary: No rashes, No breakdown Neurological: Normal speech, Normal strength at 5/5 x4 extr, Cranial nerves 3-12 intact, Normal reflexes 2+, Normal affect Lymphatics: No axilla or inguinal lymphadenopathy - Studies Laboratory Data (last 24 hrs) 08/22/23 08/22/23 08/22/23 14:15 14:15 14:15 WBC 38.00 H Hgb 13.8 Hct 41.2 Plt Count 141 L PT 12.2 INR 1.11 APTT 31.5 Sodium 136 Potassium 3.7 BUN 18 Creatinine 0.64 Glucose 150 H Total Bilirubin 0.3 AST < 10 L ALT 30 Alkaline Phosphatase 122 H Assessment and Plan - Problems (Diagnosis) (1) Sepsis Current Visit: Yes Status: Acute Plan: Possible sepsis Leukocytosis, lactic acidosis, noted Will obtain cultures Will start on empiric antibiotic IV hydration Monitor closely on telemetry Patient had hypothermia at home Bilateral lower extremity pain Pain control Will add baclofen for spasm Doppler was negative for any DVT Early diverticulitis of sigmoid Started on IV antibiotic Pain control Stage II ovarian cancer On chemotherapy CT abdomen does not show any further changes Follow-up with heme oncology as outpatient Hypertension Antihypertensives titrated Continue home medications and titrate as needed Diabetes Insulin sliding scale Accu-Chek before every meal and at bedtime GI/DVT prophylaxis Advanced directive full code Discharge Plan: Home Plan to discharge in: 48 Hours - Advance Directives Does patient have a Living Will: No Does patient have a Durable POA for Healthcare: No - Code Status/Comfort Care Code Status: Full Code Time Spent Managing Pts Care (In Minutes): 48
[2023-08-22 20:20] LABS: SARS-CoV-2 Antigen CONTROL BLUE LINE VIS/BG OK; SARS-CoV-2 Antigen Rapid Res Negative (Negative)
[2023-08-22] MEDS ORDERED: D50W 25 GM/50 ML SYRINGE IV PRN (20:37)
[2023-08-22] MEDS ORDERED: GLUCAGON 1 MG/VIAL IM PRN (20:37)
[2023-08-22] MEDS ORDERED: D10W 125 ML IV PRN (20:50)
[2023-08-22 21:06] VITALS: O2SAT 99
[2023-08-22] MEDS: NA CHLORIDE 0.9% 1,000 ML IV SCH (21:08)
[2023-08-22] MEDS: PANTOPRAZOLE 40 MG INJ IVP SCH (21:08)
[2023-08-22] MEDS: PIPER TAZO 3.375 GM in NA CHLORIDE 0.9% 100 ML IV SCH (21:08)
[2023-08-22] MEDS: BACLOFEN 10 MG TAB PO SCH (21:09)
[2023-08-22] MEDS: MORPHINE 4 MG/ML SYR IV PRN (21:09)
[2023-08-22] MEDS: HYDROCODONE/APAP 10/325 TAB PO PRN (21:30)
[2023-08-22] MEDS: INSULIN REGULAR (HUMAN) 100 UNIT/ML SQ SCH (21:30)
[2023-08-22] MEDS: GABAPENTIN 300 MG CAP PO PRN (22:51)
[2023-08-23 00:29] VITALS: BMI 29.6
[2023-08-23 03:59] LABS: Absolute Eosinophils 0.2 K/uL (0-0.5); Absolute Lymphocytes (CBC) 3.8 K/uL (0.7-4.9); Absolute Monocytes 0.3 K/uL (0.1-1.3); Absolute Neutrophil 17.5 K/uL (1.8-8.0); Basophils % 0.2 % (0-1.3); Eosinophils % 0.9 % (0-4.4); Hematocrit 36.8 % (36.0-45.0); Hemoglobin 12.5 g/dL (12.0-15.0); Lymphocytes % 17.6 % (15.3-44.8); MCH 31.4 pg (27.0-35.0); MCHC 33.9 g/dL (32.0-36.0); MCV 92.7 fL (80-100); MPV 8.5 fL (7.6-11.3); Monocytes % 1.3 % (3.3-12.3); Nucleated Red Blood Cells % 0.1 % (0-0); Platelets 119 thou/uL (152-406); RBC Red Blood Cell Count 3.97 M/uL (3.86-4.86)
[2023-08-23 04:30] LABS: Albumin 3.1 g/dL (3.4-5.0); Albumin/Globulin Ratio 1.1 (1.1-1.8); Anion Gap 6.5 mEq/L (5.0-15.0); Bilirubin Total 0.5 mg/dL (0.2-1.0); Globulin 2.9 g/dL (2.3-3.5); Potassium 3.5 mEq/L (3.5-5.1)
[2023-08-23 06:19] LABS: Magnesium 1.6 mg/dL (1.6-2.4); Phosphorus 4.9 mg/dL (2.5-4.9)
[2023-08-23] MEDS: POTASSIUM CL SA 10 MEQ TAB PO ONE (08:39)
[2023-08-23] MEDS: MAGNESIUM SULFATE 1 gm IVPB 1 GM/100 ML BAG IV ONE (08:40)
[2023-08-23] MEDS ORDERED: GABAPENTIN 300 MG CAP PO PRN (10:39)
[2023-08-23] MEDS ORDERED: HYOSCYAMINE SULF 0.125 MG TAB PO PRN (10:39)
[2023-08-23] MEDS: EZETIMIBE 10 MG TAB PO SCH (11:47)
[2023-08-23] MEDS: CYANOCOBALAMIN 1,000 MCG TAB PO SCH (11:47)
[2023-08-23] MEDS: COENZYME Q10- 100 MG CAP PO SCH (11:47)
[2023-08-23] MEDS: VITAMIN D 5,000 UNIT CAP PO SCH (11:47)
[2023-08-23] MEDS: APIXABAN 5 MG TABLET PO SCH (11:50)
--- NOTE | 2023-08-23 14:55 | EKG ---
Test Date: 2023-08-22 Test Time: 14:05:48 Armhole Raiser Lockstitch: MEASUREMENT RESULTS: Intervals: Rate: 86 DC: 138 QRSD: 74 QT: 368 QTc: 440 [place]: P: 77 DC: 138 QRS: 51 T: 57 INTERPRETIVE STATEMENTS: Normal sinus rhythm Normal ECG Compared to ECG 07/23/2023 12:44:11 No significant changes Electronically Signed On 08-23-23 14:51:18 CDT by Calderon Leigh
--- NOTE | 2023-08-23 16:29 | P.DS ---
Admission Date: 08/22/23 Discharge Date: 08/23/23 Disposition: ROUTINE DISCHARGE Discharge Condition: FAIR Reason for Admission: Acute Diverticulitis / Leg cramps - Problems (1) Leukocytosis Current Visit: Yes Status: Acute (2) Diverticulitis Current Visit: Yes Status: Acute (3) Ovarian cancer Current Visit: Yes Status: Acute (4) Chemotherapy-induced neuropathy Current Visit: Yes Status: Acute Brief History of Present Illness: 71-year-old female with past medical history of hypertension, diabetes, recently diagnosed with stage II ovarian cancer on chemotherapy who received chemo on Wednesday came to ER with pain in bilateral lower extremities associated with cramping. The chemo she received also included IV steroid. Patient denies any fever or chills. No dysuria. No cough or upper respiratory tract symptoms. She also denied any abdominal pain. She started having bilateral lower extremity pain associated with spasm and cramping which was intolerable and was brought to ER. Patient was assessed in the ER and was found to have leukocytosis and mild lactic acidosis. CT abdomen pelvis done showed mild diverticulitis however alexys ent denied any abdominal pain or any GI symptoms. She was hospitalized for further management. Hospital Course: Patient was admitted to the medical floor and started on broad-spectrum antibiotics. Antibiotics given after blood cultures were obtained in the ED. She denied any symptoms, no fever or tachycardia. Leukocytosis trended down. Blood cultures yielded no growth. UA was clear did not suggest any UTI. Patient at the moment feels she is at baseline and denies any symptoms. She is ambulatory, chest x-ray shows no infiltrates or pneumonia. Patient has been a febrile. Leukocytosis noted is likely steroid-induced. 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 Patient stated she was informed she may develop those symptoms with the chemotherapy. Patient requested to go home. She is discharged according to her request and prescribed oral Levaquin and Flagyl to continue treatment for diverticulitis noted on the CT. patient has been informed to return to the ED should she develop abdominal pain or feels unwell. Vital Signs/Physical Exam: Temp Pulse Resp BP Pulse Ox 98.0 F 72 13 150/52 H 99 08/23/23 12:00 08/23/23 12:00 08/23/23 12:00 08/23/23 12:08/23/23 12:00 General: Alert, In no apparent distress, Oriented x3 HEENT: Mucous membr. moist/pink Neck: Supple, JVD not distended Respiratory: Clear to auscultation bilaterally, Normal air movement Cardiovascular: No edema, Regular rate/rhythm, Normal S1 S2 Gastrointestinal: Normal bowel sounds, Soft and benign, Non-distended, No tenderness Musculoskeletal: No swelling Integumentary: No rashes, No cyanosis Neurological: Normal strength at 5/5 x4 extr Laboratory Data at Discharge: WBC 21.90 thou/uL (4.3-10.9) H 08/23/23 03:19 Hgb 12.5 g/dL (12.0-15.0) D 08/23/23 03:19 Hct 36.8 % (36.0-45.0) 08/23/23 03:19 Plt Count 119 thou/uL (152-406) L 08/23/23 03:19 PT 12.2 SECONDS (9.5-12.5) 08/22/23 14:15 INR 1.11 08/22/23 14:15 APTT 31.5 SECONDS (24.3-36.9) 08/22/23 14:15 Sodium 140 mEq/L (136-145) 08/23/23 03:19 Potassium 3.5 mEq/L (3.5-5.1) 08/23/23 03:19 BUN 19 mg/dL (7-18) H 08/23/23 03:19 Creatinine 0.63 mg/dL (0.55-1.02) 08/23/23 03:19 Glucose 96 mg/dL (74-106) 08/23/23 03:19 Phosphorus 4.9 mg/dL (2.5-4.9) 08/23/23 03:19 Magnesium 1.6 mg/dL (1.6-2.4) 08/23/23 03:19 Total Bilirubin 0.5 mg/dL (0.2-1.0) 08/23/23 03:19 AST 16 U/L (15-37) 08/23/23 03:19 ALT 29 U/L (13-56) 08/23/23 03:19 Alkaline Phosphatase 98 U/L (45-117) 08/23/23 03:19 Home Medications: Metformin HCl [Glucophage*] 500 mg PO BIDWM 04/03/21 Apixaban [Eliquis] 5 mg PO BID 07/23/23 Cholecalciferol (Vitamin D3) [D3-5000] 1 tab PO DAILY 07/23/23 Ezetimibe 10 mg PO DAILY 07/23/23 Rosuvastatin Calcium 20 mg PO BEDTIME 07/23/23 Ubidecarenone [Co Q-10] 100 mg PO DAILY 07/23/23 Albuterol Sulfate [Albuterol Sulfate Hfa] 2 puff IH Q6HP PRN 08/22/23 Cyanocobalamin [Vitamin B-12*] 1,000 mcg PO DAILY 08/22/23 Gabapentin 300 mg PO TIDP PRN 08/22/23 Hyoscyamine Sulfate [Levsin TAB*] 0.125 mg PO Q8HP PRN 08/22/23 Nifedipine [Nifedipine ER] 30 mg PO DAILY 08/22/23 levoFLOXacin [Levaquin] 750 mg PO DAILY #7 tab 08/23/23 metroNIDAZOLE [Flagyl] 500 mg PO Q8H #15 tab 08/23/23 New Medications: metroNIDAZOLE [Flagyl] 500 mg PO Q8H #15 tab levoFLOXacin [Levaquin] 750 mg PO DAILY #7 tab Diet: AHA Activity: Ad cass Followup: Shannan Guadarrama MD [Primary Care Provider] - Time spent managing pt's care (in minutes): 33
[2023-08-23 17:25] VITALS: BP 97/60; TEMP 97.9
[2023-08-23] MEDS ORDERED: ROSUVASTATIN 10 MG TAB PO SCH (21:00)
[2023-08-24] MEDS ORDERED: NIFEDIPINE XL 30 MG TABLET PO SCH (09:00)
== END 2023-08-23 18:08 | disposition home or self-care (01) | DRG 872 ==
LOC: ER 13:12 → ERHOLD 18:20 → 2ND 20:20
PROVIDERS: ADMIT Family Medicine; ATTEND Internal Medicine
DX: A41.9 Sepsis, unspecified organism (principal); K57.32 Diverticulitis of large intestine without perforation or abscess without bleeding; C56.9 Malignant neoplasm of unspecified ovary; E87.21 Acute metabolic acidosis; R65.20 Severe sepsis without septic shock; T45.1X5A Adverse effect of antineoplastic and immunosuppressive drugs, initial encounter; G62.0 Drug-induced polyneuropathy; I10 Essential (primary) hypertension; E11.9 Type 2 diabetes mellitus without complications; Z79.4 Long term (current) use of insulin; Z90.49 Acquired absence of other specified parts of digestive tract; Z90.710 Acquired absence of both cervix and uterus
CPT/HCPCS: 36415; 71045; 71260; 74177; 80053; 81001; 82947; 83605; 83735; 84100; 85025; 85610; 85730; 87040; 87804; 87811; 93005; 93925; 93970; 96365; 96366; 96375; 99285; C9113; J0690; J2543; J3010; J3475; J7030; Q9967

== ENCOUNTER 2023-10-28 07:19 | Day surgery (SDC) | payer MEDICARE ==
[2023-10-28] MEDS ORDERED: NA CHLORIDE 0.9% 250 ML ONE (07:29)
[2023-10-28 13:16] LABS: Hematocrit 22.6 % (36.0-45.0); Hemoglobin 7.9 g/dL (12.0-15.0)
[2023-10-28 13:24] VITALS: BP 119/51; TEMP 98.7; O2SAT 97; BMI 27.7
== END 2023-10-28 13:10 | disposition home or self-care (01) ==
LOC: DS 07:19
PROVIDERS: ATTEND Internal Medicine
PROC: 30233N1 Transfusion of Nonautologous Red Blood Cells into Peripheral Vein, Percutaneous Approach (ICD-10-PCS; principal; 2023-10-28)
DX: C56.2 Malignant neoplasm of left ovary (principal); I26.99 Other pulmonary embolism without acute cor pulmonale; I10 Essential (primary) hypertension; E11.9 Type 2 diabetes mellitus without complications
CPT/HCPCS: 36415; 36430; 85014; 85018; 86850; 86900; 86901; 86920; J7050; P9016

== ENCOUNTER → 2023-12-29 | Day surgery (SDC) | payer BC, MEDICARE ==
[~2023-12-29] MED LIST: FENTANYL CITR 100 MCG/2 ML ONE; LIDOCAINE 2% MPF 5 ML VIAL ONE; MIDAZOLAM HCL 2 MG/2 ML INJ ONE; ONDANSETRON 4 MG/2 ML VIAL ONE; dexAMETHasone 10 MG/ML VIAL ONE; propofoL 200 MG/20 ML VIAL IV ONE
[2023-12-29] MEDS: NA CHLORIDE 0.9% 1,000 ML ONE (10:40)
[2023-12-29] MEDS: CEFAZOLIN SODIUM 1 GM/VIAL ONE (11:51)
[2023-12-29] MEDS: LIDOCAINE HCL/EPINEPHRINE 20 ML MDV ONE (12:17)
--- NOTE | 2023-12-29 12:40 | P.OP ---
Preoperative diagnosis: Removal of Chemotherapy Port Postoperative diagnosis: Removal of Chemotherapy Port Primary procedure: Removal of Chemotherapy Port Anesthesia: MAC + Local Estimated blood loss: <5cc Specimen: Port a cath Findings: good hemostasis Complications: None Transferred to: Recovery Room Condition: Good
--- NOTE | 2023-12-29 14:03 | OP ---
Date of Procedure: 12/29/2023 Surgeon: Robert Montelongo MD, Preoperative Diagnosis: Remove the chemotherapy port. Postoperative Diagnosis: Remove the chemotherapy port. Procedure Performed: Removal of chemotherapy port. Anesthesia: MAC plus local 1% lidocaine with epinephrine. Estimated Blood Loss: Less than 5 cc. Specimen: Port-A-Cath for ID only. Findings: Good hemostasis. Port intact. Complications: None. Disposition: The patient transferred to recovery room in good condition. Procedure In Detail: After informed consent was obtained, patient was brought to the operating room, prepped and draped in the usual sterile fashion after adequate anesthesia was achieved. I anestheti zed an area overlying the Port-A-Cath on the right chest wall. I then dissected down using electroca utery to expose the port. The port pocket was opened sharply with Metzenbaum scissors. Ultimately, I removed all 3 sutures that were holding the port down and placed in a good anatomic position. Afte r these were removed in its entirety, which were consistent with Prolene sutures, I then held pressur e and the patient was placed in steep Trendelenburg position and removed the catheter, at this point, sent off for pathologic examination. I held pressure while patient was in steep Trendelenburg posit ion for 1 minute and ultimately the patient was placed in the neutral position as pressure continued to be withheld. The wound site pocket was irrigated at this point and closed with interrupted 3-0 Vi cryl sutures in a deep dermal fashion. The skin was closed with a 4-0 Monocryl in a running fashion. Dermabond was placed over top. The patient was then sat up in the upright position for approximate ly 5 minutes and a sterile dressing placed over top. The patient tolerated the procedure well withou t incident or complication, transferred to PACU in good condition. All counts were correct at the en d of the case. TK/MODL Voice ID: [id number] Report ID: [id number]
[2023-12-29 14:06] VITALS: BP 134/67; TEMP 97.9; O2SAT 96
== END | disposition home or self-care (01) ==
LOC: OR 10:09
PROVIDERS: ATTEND Surgery
PROC: 0JPT0WZ Removal of Totally Implantable Vascular Access Device from Trunk Subcutaneous Tissue and Fascia, Open Approach (ICD-10-PCS; principal; 2023-12-29 12:00)
DX: C56.9 Malignant neoplasm of unspecified ovary (principal); Z45.2 Encounter for adjustment and management of vascular access device
CPT/HCPCS: 82947 ×2; 36590; J2704; J2001; J2250; J3010; J1100; J2405; J7030; J0690